=== PATIENT | female | born 1970 | race Caucasian/White ===

== ENCOUNTER 2016-08-06 02:10 | Observation (INO) | payer MEDICARE, OTHER ==
[2016-08-06] MEDS ORDERED: ASPIRIN 81 MG CHEW PO STA (02:23)
[2016-08-06] MEDS ORDERED: NITROGLYCERIN SL TABS 0.4 MG TAB SUBLINGUAL PRN (02:23)
[2016-08-06] MEDS ORDERED: HEPARIN SODIUM,PORCINE 5,000 UNIT/ML 1 ML VIAL IV PRN (02:23)
--- NOTE | 2016-08-06 02:23 | ED ---
General Adult HPI - General Stated complaint: chest pains Time Seen by Provider: 08/06/16 02:21 Source: RN notes reviewed, old records reviewed - History of Present Illness Initial comments: This is a 46-year-old female here for evaluation of chest pain. Patient cancer patient for evaluation of cardiac disease, possible chest pain rule out acute coronary syndrome. Progesterone physician patient had normal EKG and normal troponin. Patient still without chest at this time. No shortness of breath no fevers. No recent travel history, no cough congestion. - Related Data Allergies Allergy/AdvReac Type Severity Reaction Status Date / Time Penicillins Allergy Unknown Verified 08/06/16 02:25 Childhood codeine AdvReac Nausea & Verified 08/06/16 02:25 Vomiting Review of Systems ROS Statement: Those systems with pertinent positive or pertinent negative responses have been documented in the HPI. ROS Other: All systems not noted in ROS Statement are negative. General Exam General appearance: anxious Head exam: Present: atraumatic, normocephalic, normal inspection Eye exam: Present: normal appearance, PERRL, EOMI. Absent: scleral icterus, conjunctival injection, periorbital swelling ENT exam: Present: normal exam, mucous membranes moist Neck exam: Present: normal inspection. Absent: tenderness, meningismus, lymphadenopathy Respiratory exam: Present: normal lung sounds bilaterally. Absent: respiratory distress, wheezes, rales, rhonchi, stridor Cardiovascular Exam: Present: regular rate, normal rhythm, tachycardia, normal heart sounds. Absent: systolic murmur, diastolic murmur, rubs, gallop, clicks GI/Abdominal exam: Present: soft, normal bowel sounds. Absent: distended, tenderness, guarding, rebound, rigid Extremities exam: Present: normal inspection, full ROM, normal capillary refill. Absent: tenderness, pedal edema, joint swelling, calf tenderness Back exam: Present: normal inspection Neurological exam: Present: alert, oriented X3, CN II-XII intact Psychiatric exam: Present: normal affect, normal mood Skin exam: Present: warm, dry, intact, normal color. Absent: rash Course Vital Signs 08/06/16 02:10 Temperature 98.1 F Pulse Rate 110 H Respiratory 16 Rate Blood Pressure 131/60 O2 Sat by Pulse 97 Oximetry - Reevaluation(s) Reevaluation #1: 08/06/16 02:26 transfer paeprwork reviewed EKG Findings - EKG Comments: EKG Findings:: EKG shows sinus rhythm rate 99, CA 110, QRS 80, QTC 446 Medical Decision Making - Medical Decision Making 46 female to ED co CP, patient is transfer patient with transfer for CP, ro ACS , patient with normal EKG, normal troponin and continued CP, will admit for serial troponin testing and further evalation by cardiology, continued anticoagulation - Radiology Data Radiology results: report reviewed (CXR transfer repoirt reviewed and negative for acute disease) Critical Care Time Critical Care Time: Yes Total Critical Care Time: 31 Disposition Clinical Impression: Chest pain Disposition: ADMITTED IP TO THIS [facility] Condition: Undetermined Referrals: None,Stated [Primary Care Provider] - 1-2 days
[2016-08-06 02:24] VITALS: RESP 16
[2016-08-06] MEDS ORDERED: SODIUM CHLORIDE 0.9% 1,000 ML IV STA (02:28)
[2016-08-06] MEDS ORDERED: HEPARIN SODIUM,PORCINE/D5W PMX 25,000 UNIT in DEXTROSE/WATER 1 500ML.BAG IV SCH (02:30)
[2016-08-06] MEDS ORDERED: HEPARIN SODIUM,PORCINE 5,000 UNIT/ML 1 ML VIAL IV ONE (02:35)
[2016-08-06] MEDS: SODIUM CHLORIDE 0.9% 1,000 ML IV SCH ×2 (03:00→14:48)
[2016-08-06 04:17] VITALS: TEMP 97.8
[2016-08-06 05:48] LABS: Basophils % (A) 0 %; CH 30.1; CHCM 32.4; Eosinophils # (A) 0.1 k/uL (0-0.7); Eosinophils % (A) 3 %; HCT 42.5 % (34.0-46.0); HDW 2.47; HGB 13.7 gm/dL (11.4-16.0); Luc # (Auto) 0.09; Luc % (Auto) 2; Lymphocytes # (A) 1.6 k/uL (1.0-4.8); Lymphocytes % (A) 39 %; MCH 30.1 pg (25.0-35.0); MCHC 32.3 g/dL (31.0-37.0); MCV 93.3 fL (80.0-100.0); Mean Platelet Volume 7.6; Monocytes # (A) 0.3 k/uL (0-1.0); Monocytes % (A) 7 %; Neutrophils # (A) 2.1 k/uL (1.3-7.7); Neutrophils % (A) 49 %; RBC 4.55 m/uL (3.80-5.40); RDW 12.9 % (11.5-15.5); WBC 4.2 k/uL (3.8-10.6); WBC (Perox) 4.74
[2016-08-06 06:17] LABS: Creatine Kinase 43 U/L (30-135)
[2016-08-06 06:30] LABS: Creatine Kinase MB 0.7 ng/mL (0.0-2.4); Troponin I <0.012 ng/mL (0.000-0.034)
[2016-08-06 07:44] LABS: Anion Gap 8 mmol/L; Blood Urea Nitrogen 5 mg/dL (7-17); Calcium 8.5 mg/dL (8.4-10.2); Carbon Dioxide 23 mmol/L (22-30); Chloride 112 mmol/L (98-107); Glucose 98 mg/dL (74-99); Non-African American GFR(MDRD) >60 (>60 ml/min/1.73 sqM); Potassium 4.6 mmol/L (3.5-5.1); Sodium 143 mmol/L (137-145)
[2016-08-06] MEDS ORDERED: DOBUTamine DRIP for NUC MED 500 MG in DEXTROSE/WATER 1 250ML.BAG IV ONE (08:26)
[2016-08-06] MEDS ORDERED: RX INFO: IV CONTRAST WAS GIVEN 1 EACH MISC MISCELLANE PRN (08:34)
[2016-08-06] MEDS ORDERED: ATORVASTATIN 80 MG TAB PO SCH (09:00)
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
--- NOTE | 2016-08-06 11:21 | CT ---
EXAMINATION TYPE: CT angio chest DATE OF EXAM: 08/06/2016 11:05 AM COMPARISON: NONE HISTORY: PE CT DLP: 160.70 mGycm Automated exposure control for dose reduction was used. CONTRAST: CTA scan of the thorax is performed with IV Contrast, patient injected with 100 ML mL of Omnipaque 35 0, pulmonary embolism protocol. . FINDINGS: The lungs are clear. There is no significant axillary or internal mammary adenopathy. There is some shotty lymph nodes in the area pulmonary window. There is a 1.1 cm lymph node in the right hilar region. There is no evidence of pulmonary embolus. The aorta is normal in caliber without evidence of dissection. There is no pleural or pericardial fluid identified. Within the abdomen, the gallbladder is been removed. Visualized portions of the upper abdomen are oth erwise normal. There is minimal hypertrophic spondylosis within the spine. IMPRESSION: THIS EXAMINATION IS NEGATIVE FOR PULMONARY EMBOLUS.
[2016-08-06] MEDS ORDERED: METOPROLOL TARTRATE 5 MG/5 ML VIAL IVP ONE (11:22)
[2016-08-06] MEDS ORDERED: ATROPINE SULFATE 0.1 MG/ML 10ML SYRINGE ONE (11:22)
--- NOTE | 2016-08-06 12:21 | ECHOF ---
Referral Reason:chest pain MEASUREMENTS -------- HEIGHT: 157.5 cm WEIGHT: 58.1 kg BP: IVSd: 1.0 cm (0.6 - 1.1) LVIDd: 3.2 cm (3.9 - 5.3) LVPWd: 1.1 cm (0.6 - 1.1) IVSs: 1.5 cm LVIDs: 2.0 cm LVPWs: 1.5 cm Ao Diam: 2.4 cm (2.0 - 3.7) AV Cusp: 1.6 cm (1.5 - 2.6) LA Diam: 1.4 cm (2.7 - 3.8) MV EXCURSION: 13.719 mm (> 18.000) MV EF SLOPE: 37 mm/s (70 - 150) EPSS: 0.5 cm MV E Eliseo: 0.63 m/s MV DecT: 186 ms MV A Eliseo: 0.94 m/s MV E/A Ratio: 0.67 RAP: 5.00 mmHg RVSP: 18.63 mmHg FINDINGS -------- Sinus rhythm. This was a technically good study. Left ventricular wall thickness is normal. Overall left ventricular systolic function is low-normal with, an EF between 50 - 55 %. The right ventricle is normal in size and function. The left atrium is normal in size. The right atrium is normal in size. The aortic valve is trileaflet, and appears structurally normal. No aortic stenosis or regurgitation. Mild mitral regurgitation is present. Mild tricuspid regurgitation present. The right ventricular systolic pressure, as measured by Doppler, is 18.63mmHg. Pulmonic valve appears structurally normal. The aortic root size is normal. The pericardium is normal. CONCLUSIONS -------- 1. Sinus rhythm. 2. Mild tricuspid regurgitation present. 3. The right ventricular systolic pressure, as measured by Doppler, is 18.63mmHg. 4. Pulmonic valve appears structurally normal. 5. The aortic root size is normal. 6. The pericardium is normal. 7. This was a technically good study. 8. Left ventricular wall thickness is normal. 9. Overall left ventricular systolic function is low-normal with, an EF between 50 - 55 %. 10. The right ventricle is normal in size and function. 11. The left atrium is normal in size. 12. The right atrium is normal in size. 13. The aortic valve is trileaflet, and appears structurally normal. No aortic stenosis or regurgitation. 14. Mild mitral regurgitation is present. [employer]PER[employer]ING [employer]: Neha Simpson RDCS
[2016-08-06 12:26] VITALS: BP 90/60; PULSE 100
--- NOTE | 2016-08-06 12:45 | ECHOS ---
DATE OF SERVICE: 08/06/2016 AGE: 46Y SEX: F HT: 62" WT: 117 lbs. Protocol Julian: Others: Dobutamine Stress Echo Stage: Dur. of Exercise: *Heart Rate Blood Pressure *Rest: 89 Rest: 163/63 * *Max. Achieved: 165 Maximum BP: 212/42 85% PMHR: 147 100% PMHR: 173 *METS: INDICATION OF THE STUDY: Chest pain. MEDICATIONS: Vyvanse, Bentyl, Paxil, Ativan. STRESS DATA: Pretesting physical examination showed heart rate of 89, pressure is 163/63 mmHg. Baseline EKG showed sinus mechanism. Dobutamine infusion at the dose of 10 mcg/kg per minute was initiated and increased to 20 mcg/kg per minute per protocol. We gave the patient 1 mg of atropine to enhance the heart rate. With dobutamine and atropine, the patient achieved a max heart rate of 165, which is about 95% of maximum predicted heart rate. Maximum blood pressure was 212/42 mmHg. Clinically, the patient did not have any symptoms and the EKG did not show any significant ST or T wave abnormalities consistent with ischemia. ECHOCARDIOGRAM IMAGES: On echocardiogram images from parasternal long axis view, parasternal short axis view, apical 4 chambers and apical 2 chamber view were obtained as the baseline images, at low-dose dobutamine infusion, a peak heart rate, as well as on recovery and the echocardiogram images showed good augmentation in the left ventricular systolic function without any evidence of wall motion abnormalities consistent with ischemia. CONCLUSION: 1. Normal EKG in response to dobutamine. 2. Normal echocardiogram in his dobutamine.
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
--- NOTE | 2016-08-06 13:25 | P.DS ---
Providers Date of admission: 08/06/16 02:23 Expected date of discharge: 08/06/16 Attending physician: Russel Hdez Consults: Dr. Fenton cardiology Primary care physician: Stated None Hospital Course: 46-year-old female who was transferred from [facility] were patient was being seen at the emergency room and [place] for chest pain. Patient stated the pain had been ongoing for the last 12 hours. Described it as sharp it did not radiate to the back or the neck. There was no diaphoresis. Subsequent the patient was transferred to [facility] in [place] admitted to the services of the attending. Cardiology consultation has been obtained cardiac enzymes 3 sets were negative. Patient did undergo a dobutamine stress echo was normal additionally the patient had an echocardiogram showed left ventricular systolic function low normal EF between 50 and 55%. Patient had no further episodes of chest pain and was felt to be medically stable and that the patient to be discharged home 12-lead EKG did not show any acute changes Impression discharge diagnosis Chest pain atypical features no evidence of acute coronary syndrome Echocardiogram left ventricular systolic function low normal EF between 50 and 55% done on August 06 Normal dobutamine stress echo no evidence of ischemia CAT scan of the chest no evidence of a pulmonary emboli History of substance abuse alcohol and amphetamines on disability History of hypertension history of a right AKA The above dictated assessment and findings were discussed with Dr. Hdez. Impression and the plan of care have been dictated as directed. Eva Blanca nurse practitioner acting as a scribe for Dr. Hdez. Patient Condition at Discharge: Undetermined Plan - Discharge Summary New Discharge Prescriptions: Atorvastatin [Lipitor] 80 mg PO DAILY #30 tab Discharge Medication List Atorvastatin [Lipitor] 80 mg PO DAILY #30 tab 08/06/16 [Rx] Dicyclomine [Bentyl] 20 mg PO DAILY PRN 08/06/16 [History] LORazepam [Ativan] 0.5 mg PO BID PRN 08/06/16 [History] Lisdexamfetamine Dimesylate [Vyvanse] 20 mg PO BID 08/06/16 [History] PARoxetine HCL [Paxil] 30 mg PO DAILY 08/06/16 [History] Follow up Appointment(s)/Referral(s): None,Stated [Primary Care Provider] - 1-2 days Russel Hdez MD [STAFF PHYSICIAN] - 1 Week Discharge Disposition: HOME SELF-CARE
[2016-08-06 13:31] LABS: Creatine Kinase 47 U/L (30-135)
[2016-08-06 13:44] LABS: Creatine Kinase MB 0.6 ng/mL (0.0-2.4); Troponin I <0.012 ng/mL (0.000-0.034)
[2016-08-06 14:42] VITALS: BMI 23.4
[2016-08-07] MEDS ORDERED: ASPIRIN 325 MG TAB PO SCH (09:00)
== END 2016-08-06 14:55 | disposition home or self-care (01) ==
LOC: EC 02:10 → 6SEL 02:23
PROVIDERS: ADMIT Family Medicine; ATTEND Family Medicine
DX: R07.89 Other chest pain (principal); R07.2 Precordial pain; I10 Essential (primary) hypertension; E11.9 Type 2 diabetes mellitus without complications; E78.5 Hyperlipidemia, unspecified; F41.9 Anxiety disorder, unspecified; F32.9 Major depressive disorder, single episode, unspecified; F43.10 Post-traumatic stress disorder, unspecified; F17.200 Nicotine dependence, unspecified, uncomplicated; I73.9 Peripheral vascular disease, unspecified; Z89.611 Acquired absence of right leg above knee; Z73.6 Limitation of activities due to disability; Z88.0 Allergy status to penicillin; Z88.5 Allergy status to narcotic agent; Z79.899 Other long term (current) drug therapy; Z87.898 Personal history of other specified conditions; Z87.828 Personal history of other (healed) physical injury and trauma
CPT/HCPCS: 99291; 96365 ×2; 96376 ×2; 96366; 93005; 93017; 93306; 93350; 80048; 82550; 82553; 84484; 85025; 85730; 71275; G0378; J1250; J1644 ×2; Q9967; J0461

== ENCOUNTER 2016-11-29 06:31 | Observation (INO) | payer MEDICARE, OTHER ==
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
[2016-11-29] MEDS ORDERED: SODIUM CHLORIDE 0.9% 1,000 ML IV ONE (07:23)
[2016-11-29] MEDS ORDERED: HYDROmorphone 1 MG/ML 1 ML SYRINGE IVP STA (07:24)
[2016-11-29] MEDS ORDERED: ASPIRIN-ACET-CAFF 250-250-65MG 1 EACH TAB PO PRN (10:05)
[2016-11-29] MEDS: ONDANSETRON 4 MG/2 ML VIAL IVP PRN (11:02)
--- NOTE | 2016-11-29 12:06 | HP ---
DATE OF ADMISSION: This 46-year-old female was transferred from [facility] for treatment of pancreatitis. Patient has elevated amylase and lipase. Lipase being 1200. Patient was seen there with epigastric abdominal pain, nonradiating, about 7/10 in severity in the epigastric area and I started on Protonix, IV fluids. Patient will be n.p.o. Although, Paxil can be given. Patient denied any fevers, chills. Patient does not have a gallbladder. Patient has history of IV drug use in the past. Patient is not drinking excessively anymore. I am obtaining a triglyceride level tomorrow and patient will be n.p.o. Patient was complaining of nausea, vomiting. Denied any diarrhea. Patient denied any recent IV drug use, but did take methamphetamine abort 3 to 4 days ago, as a street drug. Patient denied any fever, chills. Patient did have nausea, vomiting. Patient denied any dysuria. REVIEW OF SYSTEMS: CONSTITUTIONAL: No fever, no malaise, no fatigue. HEENT: No recent visual problems or hearing problems. Denied any sore throat. CARDIOVASCULAR: No chest pain, orthopnea, PND, no palpitations, no syncope. PULMONARY: No shortness of breath, no cough, no hemoptysis. GASTROINTESTINAL: As described in HPI. NEUROLOGICAL: No headaches, no weakness, no numbness. HEMATOLOGICAL: Denies any bleeding or petechiae. GENITOURINARY: Denies any burning micturition, frequency, or urgency. MUSCULOSKELETAL/RHEUMATOLOGICAL: Denies any joint pain, swelling, or any muscle pain. ENDOCRINE: Denies any polyuria or polydipsia. The rest of the 14 point review of systems is negative. HOME MEDICATIONS: 1. Dicyclomine. 2. Lorazepam. 3. Vyvanse. 4. Paroxetine. 5. Atorvastatin. ALLERGIES: Allergic to PENICILLIN and CODEINE. PAST MEDICAL HISTORY: Significant for hepatitis C from her previous IV drug use, depression, section, cholecystectomy. Patient follows with ( ) for hep C. Patient denied any smoking, alcohol abuse. Drug abuse as mentioned above. Recently using methamphetamine. Denied any significant recent alcohol abuse. Did have such kind of history in the past and patient had pancreatitis in the past. FAMILY HISTORY: Significant for mother with coronary artery disease and myocardial infarction. PHYSICAL EXAMINATION: Temperature 97.0, pulse of 67, respiratory rate 16, blood pressure 102/49, saturating at 96% on room air. GENERAL: The patient is alert and oriented x3, not in any acute distress. Well developed, well nourished. HEENT: Pupils are round and equally reacting to light. EOMI. No scleral icterus. No conjunctival pallor. Normocephalic, atraumatic. No pharyngeal erythema. No thyromegaly. CARDIOVASCULAR: S1 and S2 present. No murmurs, rubs, or gallops. PULMONARY: Chest is clear to auscultation, no wheezing or crackles. ABDOMEN: Minimal epigastric abdominal tenderness was appreciated. No rebound or rigidity. The patient does have good bowel sounds on the abdominal examination. MUSCULOSKELETAL: No joint swelling or deformity. EXTREMITIES: No cyanosis, clubbing, or pedal edema. NEUROLOGICAL: Gross neurological examination did not reveal any focal deficits. SKIN: No rashes. LABORATORY DATA: Significant ones are discussed above. Patient does not have any leukocytosis. ASSESSMENT AND PLAN: 1. Acute pancreatitis mostly idiopathic in nature. Will obtain a triglyceride level. Patient does not have gallbladder anymore. Patient may have gastritis as well, for which patient will be started on Protonix 40 daily. Patient takes omeprazole at home. 2. Depression. Paxil can be continued. 3. The patient although n.p.o. can take medications; n.p.o. except medications. 4. Hepatitis C, will need follow up as an outpatient with Gastroenterology. No further intervention is as necessary at this point of time. 5. History of drug abuse. Counseling was provided. Patient did have history of IV drug use. Had not been using IV drugs any more. Patient's primary care physician is Dr. Neil Kim.
[2016-11-29] MEDS: PANTOPRAZOLE 40 MG TABLET PO SCH (18:20)
[2016-11-30] MEDS: PARoxetine 20 MG TAB PO SCH (07:54)
[2016-11-30] MEDS: PANTOPRAZOLE 40 MG TABLET PO SCH (07:54)
[2016-11-30 08:17] LABS: CH 30.2; CHCM 32.2; HCT 43.2 % (34.0-46.0); HDW 2.68; MCH 30.6 pg (25.0-35.0); MCHC 32.4 g/dL (31.0-37.0); MCV 94.4 fL (80.0-100.0); Mean Platelet Volume 7.9; RBC 4.57 m/uL (3.80-5.40); RDW 13.3 % (11.5-15.5); WBC 5.6 k/uL (3.8-10.6)
[2016-11-30 08:34] LABS: ALT 273 U/L (9-52); AST 323 U/L (14-36); Alkaline Phosphatase 36 U/L (38-126); Anion Gap 12 mmol/L; Blood Urea Nitrogen 11 mg/dL (7-17); Calcium 8.8 mg/dL (8.4-10.2); Carbon Dioxide 17 mmol/L (22-30); Chloride 113 mmol/L (98-107); Cholesterol 111 mg/dL (<200); HDL Cholesterol 66 mg/dL (40-60); Non-African American GFR(MDRD) >60 (>60 ml/min/1.73 sqM); Potassium 4.3 mmol/L (3.5-5.1); Sodium 142 mmol/L (137-145); Total Bilirubin 1.6 mg/dL (0.2-1.3); Total Protein 5.6 g/dL (6.3-8.2); Triglycerides 70 mg/dL (<150)
[2016-11-30 08:45] LABS: Glucose 37 mg/dL (74-99)
[2016-11-30] MEDS ORDERED: DEXTROSE 10 % IN WATER 250 ML IV STA (08:55)
[2016-11-30 09:19] LABS: Glucose,Whole Blood 102 mg/dL (75-99)
[2016-11-30] MEDS: DEXTROSE 5%-0.9% NACL 1,000 ML IV SCH ×2 (09:24→18:02)
[2016-11-30] MEDS: ONDANSETRON 4 MG/2 ML VIAL IVP PRN (12:57)
--- NOTE | 2016-11-30 14:58 | P.PN ---
Subjective Date of service 11/30/2016. Personal being dictated for . Interval history: This a 46-year-old female admitted with acute pancreatitis and multiple other medical issues. Remains NPO. Denies nausea vomiting, or diarrhea. Abdominal pain improving. Afebrile. Lipase at [place] 1200, improved down to 111. TBili 1.6. Review of systems: HEENT: Denies headache or focal deficits. Denies any dizziness or lightheadedness. Denies fatigue. Respiratory: Denies any increased shortness of breath. Denies cough, denies hemoptysis Cardiac: Denies any chest pain, palpitations. Denies syncope. GI: Denies any nausea, vomiting, or diarrhea. As mentioned above, abdominal pain improving : Denies any dysuria, frequency or urgency. Psychiatry: Denies any anxiety or depression. Active Medications Acetaminophen/Aspirin/Caffeine (Excedrin) 2 each PO DAILY PRN PRN Reason: Migraine Headache Hydromorphone HCl (Dilaudid) 1 mg IVP Q4HR PRN PRN Reason: Pain Dextrose/Sodium Chloride (Dextrose 5%-Ns Iv Soln) 1,000 mls @ 125 mls/hr IV .Q8H [facility] Last Admin: 11/30/16 09:24 Dose: 125 mls/hr Ondansetron HCl (Zofran) 4 mg IVP Q6HR PRN PRN Reason: Nausea And Vomiting Last Admin: 11/30/16 12:57 Dose: 4 mg Pantoprazole Sodium (Protonix) 40 mg PO AC-BRKFST [facility] Last Admin: 11/30/16 07:54 Dose: 40 mg Paroxetine HCl (Paxil) 20 mg PO DAILY [facility] Last Admin: 11/30/16 07:54 Dose: 20 mg Objective - Vital Signs Vital signs: Vital Signs Temp 97.4 F L 11/30/16 07:00 Pulse 62 11/30/16 07:00 Resp 14 11/30/16 07:00 BP 86/64 11/30/16 12:21 Pulse Ox 99 11/30/16 07:00 Intake & Output 11/29/16 11/30/16 11/30/16 18:59 06:59 18:59 Intake Total 800 Balance 800 Intake: Intake, IV Titration 800 Amount Sodium Chloride 0.9% 1, 800 000 ml @ 100 mls/hr IV . Q10H ONE Rx#:[id number] Other: # Voids 1 # Emeses 2 - Exam PHYSICAL EXAM: VITAL SIGNS: As above GENERAL: [Sitting up in bed, no acute distress] HEENT: [Pupils equal conjunctiva normal. No thyromegaly] NECK: [Supple, no JVD] RESPIRATORY EFFORT:[ Normal,] LUNGS: [Clear to auscultation, no wheezing rhonchi or crackles] CARDIOVASCULAR[ regular S1 and S2, no murmurs rubs or gallops, no edema] GI: [Abdomen soft, minimal mid -epigastric tenderness, positive bowel sounds.] EXTREMITIES: RIght AKA, with prostheses at bedside PSYCH: [Alert and oriented -3, mood and affect normal.] NEURO: Gross neurological examination did not reveal any focal deficits - Labs CBC & Chem 7: 11/30/16 07:28 11/30/16 07:28 Labs: Abnormal Lab Results - Last 24 Hours (Table) 11/30/16 11/30/16 Range/Units 07:28 09:15 Chloride 113 H (98-107) mmol/L Carbon Dioxide 17 L (22-30) mmol/L Creatinine 0.50 L (0.52-1.04) mg/dL Glucose 37 L* (74-99) mg/dL POC Glucose (mg/dL) 102 H (75-99) mg/dL Total Bilirubin 1.6 H (0.2-1.3) mg/dL AST 323 H (14-36) U/L ALT 273 H (9-52) U/L Alkaline Phosphatase 36 L (38-126) U/L Total Protein 5.6 L (6.3-8.2) g/dL Albumin 2.9 L (3.5-5.0) g/dL HDL Cholesterol 66 H (40-60) mg/dL Assessment and Plan Plan: 1. [ Acute pancreatitis, idiopathic , history patient with history of choley, pancreatitis. Possible gastritis. 2. [ Depression]. 3. [ Hepatitis C]. 4. [ History of IV drug abuse]. Plan: Continue on current medication regime ,monitoring and symptomatic treatment. Clear liquid diet initiated with advance as tolerated. Increase ambulation as tolerated. Close monitoring of LFTs, lipase with repeat labs ordered for a.m. Discharge planning in progress for tomorrow. The impression and plan of care has been dictated as directed. : I performed a H&P examination of this patient and discussed the same with the dictator. I agree with the dictator's note. Any additional findings/opinions/ etc. will be noted.
[2016-11-30 16:56] LABS: Glucose,Whole Blood 171 mg/dL (75-99)
[2016-11-30] MEDS: SODIUM CHLORIDE 0.9% 1,000 ML IV SCH (18:03)
[2016-12-01] MEDS: HYDROmorphone 1 MG/ML 1 ML SYRINGE IVP PRN ×2 (01:39→14:28)
[2016-12-01] MEDS: SODIUM CHLORIDE 0.9% 1,000 ML IV SCH ×3 (04:00→16:51)
[2016-12-01] MEDS: PARoxetine 20 MG TAB PO SCH (08:05)
[2016-12-01] MEDS: PANTOPRAZOLE 40 MG TABLET PO SCH (08:05)
--- NOTE | 2016-12-01 08:49 | PN ---
DATE OF SERVICE: 11/30/2016 This 46-year-old woman who was admitted with acute pancreatitis, possibly thought to be idiopathic pancreatitis. Patient also had cholecystectomy. Seen and evaluated the patient along with the nurse practitioner. Please refer to nurse practitioner notes and impression documented for further information. Advance the diet. If the patient is able to tolerate the diet, will work on discharging the patient.
[2016-12-01 08:52] LABS: ALT 251 U/L (9-52); AST 373 U/L (14-36); Alkaline Phosphatase 27 U/L (38-126); Anion Gap 2 mmol/L; Blood Urea Nitrogen 5 mg/dL (7-17); Calcium 8.1 mg/dL (8.4-10.2); Carbon Dioxide 28 mmol/L (22-30); Chloride 113 mmol/L (98-107); Glucose 79 mg/dL (74-99); Non-African American GFR(MDRD) >60 (>60 ml/min/1.73 sqM); Potassium 3.8 mmol/L (3.5-5.1); Sodium 143 mmol/L (137-145); Total Bilirubin 1.2 mg/dL (0.2-1.3); Total Protein 4.9 g/dL (6.3-8.2)
[2016-12-01 12:01] VITALS: BMI 17.2
[2016-12-01 15:16] VITALS: RESP 18
[2016-12-01 23:50] VITALS: BP 80/44; PULSE 72; TEMP 99.1
--- NOTE | 2016-12-02 12:40 | DS ---
DATE OF ADMISSION: 11/29/2016 DATE OF DISCHARGE: 12/02/2016 FINAL DIAGNOSES: 1. Acute pancreatitis, possibly idiopathic. 2. History of cholecystectomy. 3. History of pancreatitis. 4. Depression. 5. History of hepatitis C. 6. History of IV drug abuse. 7. Hepatitis secondary to chronic hepatitis C DISCHARGE DISPOSITION: The patient will be discharged in a stable condition with guarded prognosis. HISTORY OF PRESENT ILLNESS: This 46-year-old woman with a past medical history of multiple medical problems was admitted with features of abdominal pain, acute pancreatitis, treated symptomatically, improved significantly. The total bilirubin is 1.2. LFTs were also elevated at 373 and 251. On exam, vitals are stable. CARDIOVASCULAR SYSTEM: S1, S2 muffled. ABDOMEN: Soft. NERVOUS SYSTEM: No focal deficits. Recommended discharge as well as follow up with Gastroenterology and Primary Physician. Discharge diet is cardiac, soft, low-fat Activity limited until followup. Follow up with Dr. Kim in 2 to 3 days. CBC, CMP, amylase and lipase. Follow up with Dr. Correa as recommended. Medications will be: 1. Aspirin p.r.n. 2. Prilosec 40 mg daily. 3. Paxil 20 mg p.o. daily. Once again, the patient will be discharged in a stable condition with guarded prognosis.
== END 2016-12-02 00:48 | disposition home or self-care (01) ==
LOC: EC 06:31 → INTOOBSV 07:23 → 4MS4W 07:23
PROVIDERS: ADMIT Internal Medicine; ATTEND Internal Medicine
DX: K85.90 Acute pancreatitis without necrosis or infection, unspecified (principal); F15.90 Other stimulant use, unspecified, uncomplicated; B18.2 Chronic viral hepatitis C; Z79.899 Other long term (current) drug therapy; Z88.5 Allergy status to narcotic agent; Z88.0 Allergy status to penicillin; F43.10 Post-traumatic stress disorder, unspecified; F32.9 Major depressive disorder, single episode, unspecified; F41.9 Anxiety disorder, unspecified; Z82.49 Family history of ischemic heart disease and other diseases of the circulatory system; F15.10 Other stimulant abuse, uncomplicated
CPT/HCPCS: 96376 ×2; 96361 ×2; 96374; 96375; 99285; 80053 ×2; 80061; 83690 ×2; 85027; G0378 ×3; J2405 ×2; J1170 ×2

== ENCOUNTER 2016-12-25 21:38 | Emergency (ER) | payer MEDICARE, OTHER ==
[2016-12-25 21:46] VITALS: RESP 18
[2016-12-25] MEDS ORDERED: ONDANSETRON 4 MG/2 ML VIAL IVP STA (22:04)
[2016-12-25] MEDS ORDERED: SODIUM CHLORIDE 0.9% 1,000 ML IV STA (22:04)
[2016-12-25] MEDS ORDERED: KETOROLAC 30 MG/ML 1 ML VIAL IVP STA (22:04)
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
[2016-12-25 22:53] LABS: Basophils % (A) 1 %; CH 30.9; CHCM 33.8; Eosinophils # (A) 0.2 k/uL (0-0.7); Eosinophils % (A) 4 %; HCT 47.3 % (34.0-46.0); HGB 15.8 gm/dL (11.4-16.0); Luc % (Auto) 2; Lymphocytes # (A) 1.6 k/uL (1.0-4.8); Lymphocytes % (A) 36 %; MCH 30.7 pg (25.0-35.0); MCHC 33.3 g/dL (31.0-37.0); Mean Platelet Volume 7.9; Monocytes # (A) 0.4 k/uL (0-1.0); Monocytes % (A) 8 %; Neutrophils # (A) 2.2 k/uL (1.3-7.7); Neutrophils % (A) 48 %; RBC 5.15 m/uL (3.80-5.40); RDW 13.8 % (11.5-15.5); WBC 4.5 k/uL (3.8-10.6)
[2016-12-25 23:03] LABS: ALT 715 U/L (9-52); Alkaline Phosphatase 34 U/L (38-126); Amylase 99 U/L (30-110); Anion Gap 9 mmol/L; Blood Urea Nitrogen 13 mg/dL (7-17); Carbon Dioxide 24 mmol/L (22-30); Chloride 106 mmol/L (98-107); Glucose 83 mg/dL (74-99); Non-African American GFR(MDRD) >60 (>60 ml/min/1.73 sqM); Potassium 4.6 mmol/L (3.5-5.1); Sodium 139 mmol/L (137-145); Total Bilirubin 1.2 mg/dL (0.2-1.3)
[2016-12-25 23:10] LABS: AST 1088 U/L (14-36)
--- NOTE | 2016-12-25 23:13 | XR ---
EXAM: XR Abdomen, 1 View CLINICAL HISTORY: Reason: abdominal pain TECHNIQUE: Frontal upright views of the abdomen/pelvis. COMPARISON: No relevant prior studies available. FINDINGS: Artifacts: Note some clothing related artifact. Intraperitoneal space: No free air is seen. Surgical clips in the right upper quadrant, right pelvis and perhaps also right lower quadrant (versus radiodense material within bowel or nonspecific small linear calcification). Gastrointestinal tract: Mild amount of colonic stool throughout. No grossly dilated bowel loops are seen. Small air-fluid level within the stomach, nonspecific. Bones/joints: Minimal leftward curvature of the lumbar spine may be positional. IMPRESSION: No specific source of the patient's symptoms detected including no evidence of intestinal obstruction or free air, as above. The findings could be correlated and followed clinically to guide further imaging follow-up as clinically indicated.
[2016-12-25] MEDS ORDERED: diphenhydrAMINE 50 MG/ML 1 ML VIAL IVP STA (23:36)
[2016-12-25] MEDS ORDERED: METOCLOPRAMIDE 5 MG/ML 2 ML VIAL IVP STA (23:36)
[2016-12-25] MEDS ORDERED: HYDROmorphone 1 MG/ML 1 ML SYRINGE IVP STA (23:36)
[2016-12-26 00:02] VITALS: BP 101/52; PULSE 75
[2016-12-26 00:09] LABS: Amorphous Sediment,Urine Occasional /hpf; Appearance,Urine Cloudy (Clear); Bacteria,Urine Rare /hpf; Bilirubin,Urine Negative (Negative); Glucose,Urine (UA) Negative (Negative); Ketones,Urine 1+ (Negative); Leukocyte Esterase,Urine Small (Negative); Mucus,Urine Many /hpf; Nitrite,Urine Negative (Negative); Particle Count 25361; Protein,Urine 1+ (Negative); RBC,Urine 2 /hpf (0-5); Specific Gravity,Urine 1.025 (1.001-1.035); Squamous Epithelial Cell,Urine 12 /hpf (0-4); UA Billing (MACRO vs. MICRO) MICRO; WBC,Urine 8 /hpf (0-5)
[2016-12-26] MEDS ORDERED: ONDANSETRON 4 MG ODT STARTER PACK 2 TAB BTL PO STA (00:13)
[2016-12-26 00:30] VITALS: TEMP 97
== END 2016-12-26 00:28 | disposition home or self-care (01) ==
LOC: SUPCPDRO 21:38 → EC 21:38
DX: K75.9 Inflammatory liver disease, unspecified (principal); R11.2 Nausea with vomiting, unspecified; F43.10 Post-traumatic stress disorder, unspecified; F31.9 Bipolar disorder, unspecified; F41.9 Anxiety disorder, unspecified; Z90.49 Acquired absence of other specified parts of digestive tract; Z95.5 Presence of coronary angioplasty implant and graft; Z88.0 Allergy status to penicillin; Z88.5 Allergy status to narcotic agent; Z91.048 Other nonmedicinal substance allergy status; Z79.899 Other long term (current) drug therapy
CPT/HCPCS: 99284; 96374; 96375 ×4; 96361; 36415; 80053; 82150; 83690; 85025; 81001; 83520; 74000; J1200; J2765; J2405; J1885; J1170; S0119